=== PATIENT | female | born 1955 | race African-American/Black ===

== ENCOUNTER 2017-12-14 13:09 | Inpatient (IN) | payer OTHER ==
[~2017-12-14] VITALS: Ht 162.6 cm; Wt 105.0 kg
[~2017-12-14 13:09] MED LIST: DEPRESSION; KEFLEX500 MG PO
[2017-12-14 13:50] LABS: HEMATOCRIT 37.3 % (36.0-46.0); HEMOGLOBIN 12.5 G/DL (11.9-15.5); MCH 28.6 PG (29.0-34.0); MCHC 33.5 G/DL (30.0-36.0); MCV 85.4 FL (83-99); PLATELET COUNT 335 K/uL (156-360); RBC DIS.WIDTH-CV 14.9 % (11.8-14.6); RBC DIS.WIDTH-SD 46.4 % (39-53); RED BLOOD COUNT 4.37 M/uL (3.80-5.20)
[2017-12-14 13:58] LABS: CHLORIDE 107 mEq/L (99-109); POTASSIUM 3.7 mEq/L (3.7-5.4); SODIUM 143 mEq/L (136-147)
[2017-12-14 14:00] LABS: GLUCOSE 110 mg/dL (70-99)
[2017-12-14 14:04] LABS: CREATININE 0.8 mg/dL (0.6-1.3); GFR ESTIMATE (CALCULATED) > 59 mL/min/
[2017-12-14 14:05] LABS: UREA NITROGEN (BUN) 9 mg/dL (9-23)
[2017-12-14] MEDS ORDERED: HYDROCODON-ACE1 EAC7 PO (15:24)
[2017-12-14] MEDS ORDERED: VERAPAMIL HCL120 MG PO (15:26)
[2017-12-14] MEDS ORDERED: LEVOTHYROXINE150 MCG PO (15:27)
[2017-12-14] MEDS ORDERED: HYDROCHLOROTHIA25 MG PO (15:28)
[2017-12-14] MEDS ORDERED: SIMVASTATIN40 MG PO (15:28)
[2017-12-14] MEDS ORDERED: PANTOPRAZOLE SO40 MG PO (15:29)
[2017-12-14] MEDS ORDERED: ASPIR 8181 M1 PO (15:30)
[2017-12-14 17:30] VITALS: BP 173/94
[2017-12-14 19:53] VITALS: BP 143/66
[2017-12-15] VITALS (8 sets, daily range): BP systolic 101–176; BP diastolic 56–78
[2017-12-15 06:46] LABS: BASOPHIL (%) 0.7 % (0-1); BASOPHIL COUNT 0.1 K/uL (0-0.1); EOSINOPHIL (%) 1.5 % (0-5); EOSINOPHIL COUNT 0.1 K/uL (0-0.3); HEMATOCRIT 34.5 % (36.0-46.0); HEMOGLOBIN 11.2 G/DL (11.9-15.5); IMMATURE GRANULOCYTE (%) 0.4 % (0.0-0.7); LYMPHOCYTE (%) 32.7 % (15-42); LYMPHOCYTE COUNT 2.4 K/uL (1.0-2.8); MCH 27.9 PG (29.0-34.0); MCHC 32.5 G/DL (30.0-36.0); MCV 85.8 FL (83-99); MONOCYTE (%) 7.8 % (3-12); MONOCYTE COUNT 0.6 K/uL (0-0.8); NEUTROPHIL (%) 56.9 % (45-76); NEUTROPHIL COUNT 4.2 K/uL (1.8-6.4); PLATELET COUNT 313 K/uL (156-360); RBC DIS.WIDTH-CV 15.1 % (11.8-14.6); RBC DIS.WIDTH-SD 47.9 % (39-53); RED BLOOD COUNT 4.02 M/uL (3.80-5.20); WHITE BLOOD COUNT 7.3 K/uL (4.1-10.2)
[2017-12-15 07:06] LABS: CHLORIDE 111 MEQ/L (99-109); CREATININE 0.8 MG/DL (0.6-1.3); GFR ESTIMATE (CALCULATED) > 59 mL/min/; GLUCOSE 98 mg/dL (70-99); POTASSIUM 3.8 MEQ/L (3.7-5.4); SODIUM 143 MEQ/L (136-147); UREA NITROGEN (BUN) 7 mg/dL (9-23)
[2017-12-16 08:18] VITALS: BP 153/69
[2017-12-16 15:30] VITALS: BP 169/76
[2017-12-17 00:10] VITALS: BP 127/59
[2017-12-17 06:50] VITALS: BP 137/89
[2017-12-17] MEDS ORDERED: AMOX TR-K CLV1 EAC4 PO (10:39)
== END 2017-12-17 12:47 | disposition home or self-care (01) | DRG 603 ==
LOC: EME 13:09 → EDOF 14:47 → 5EAST 14:47 → ENRESERV 14:49 → 5EAST 17:15 → ENPENDDIS 12-17 → 5EAST 12-17 12:47
PROVIDERS: Hospitalist; Physician Assistant Medical
DX: L03.115 Cellulitis of right lower limb (principal); E66.01 Morbid (severe) obesity due to excess calories; I87.2 Venous insufficiency (chronic) (peripheral); L03.116 Cellulitis of left lower limb; I11.0 Hypertensive heart disease with heart failure; Z68.39 Body mass index [BMI] 39.0-39.9, adult; B35.1 Tinea unguium; E78.5 Hyperlipidemia, unspecified; E03.9 Hypothyroidism, unspecified; I50.9 Heart failure, unspecified; K21.9 Gastro-esophageal reflux disease without esophagitis; F17.200 Nicotine dependence, unspecified, uncomplicated; B95.61 Methicillin susceptible Staphylococcus aureus infection as the cause of diseases classified elsewhere
CPT/HCPCS: 80048; 80202; 83605; 85025; 85027; 87040; 93970; J0295; J1650; J3370; J7030; J7050